=== PATIENT | female | born 2000 | race Caucasian/White ===

== ENCOUNTER 2019-12-25 15:57 | Emergency (ER) | payer OTHER ==
--- OUTSIDE RECORDS SUMMARY | 2019-12-25 16:01 | XMS ---
:2000 [facility] Providers Name Role Phone Brand, Fern Unavailable Brand, Fern Unavailable Brand, Fern Unavailable Brand, Fern Unavailable Jonathan Liu MD Unavailable Unavailable Jonathan Liu MD Unavailable Unavailable Jonathan Liu MD Unavailable Unavailable Re-disclosure Warning The records that you are about to access may contain information from federally- assisted alcohol or drug abuse programs. If such information is present, then the following federally mandated warning applies: This information has been disclosed to you from records protected by federal confidentiality rules (42 CFR part 2). The federal rules prohibit you from making any further disclosure of this information unless further disclosure is expressly permitted by the written consent of the person to whom it pertains or as otherwise permitted by 42 CFR part 2. A general authorization for the release of medical or other information is NOT sufficient for this purpose. The Federal rules restrict any use of the information to criminally investigate or prosecute any alcohol or drug abuse patient.The records that you are about to access may contain highly sensitive health information, the redisclosure of which is protected by Article 27-F of the [place] State Public Health law. If you continue you may haveaccess to information: Regarding HIV / AIDS; Provided by facilities licensed or operated by the [facility] Office of Mental Health; or Provided by the [facility] Office for People With Developmental Disabilities. If such information is present, then the following [facility] mandated warning applies: This information has been disclosed to you from confidential records which are protected by state law. State law prohibits you from making any further disclosure of this information without the specific written consent of the person to whom it pertains, or as otherwise permitted by law. Any unauthorized further disclosure in violation of state law may result in a fine or fpc sentence or both. A general authorization for the release of medical or other information is NOT sufficient authorization for further disclosure. Encounters Encounter Providers Location Date Indications Data Source(s ) Attender: Jonathan Pediatric 10/31/19 BRIANNA Liu MD [facility] ([facility] 08:41:00 Childrens AM EDT - Health 10/31/19 [facility]) 08:41:00 AM EDT Attender: Jonathan Pediatric 09/29/19 BRIANNA Liu MD [facility] ([facility] 10:55:00 Childrens AM EDT - Health 09/29/19 [facility] 20 [facility]) 10:55:00 AM EDT Attender: Jonathan Pediatric 09/06/19 BRIANNA Liu MD [facility] ([facility] 12:59:00 Childrens PM EDT - Health 09/06/19 [facility] 20 [facility]) 12:59:00 PM EDT OutpatientPREV Attender: Pediatric 03/15/19 BMI pediatric, NEXTGE N VISIT EST AGE 18-39 Fern Tiwari Of 20 5th percenti le ([facility] 03:00:00 to less than Childre ns PM EST - 85% for Health 03/15/19 ageEncntr for Physicians 20 general adult LL) 03:00:00 medical exam PM EST w/o abnormal findings BMI pediatric, 5th percentile to less th an 85% for age Encntr for general adult medical exam w/ o abnormal findings OutpatientOFFICE/OUTPATIENT Attender: Pediatric 03/10/2019 [facility] 20-32 Fern Tiwari 04:00:00 PM without LOC, (Gabrielle on [facility] - initial [facility] 03/10/2019 encounter Health 04:00:00 PM Physicians EST LL) Concussion, without LOC, initial encount er Immunizations Vaccine Date Status Description Data Source(s) New in 2011. IIV4 03/15/2019 completed Influenza 0.5 PF NEXTG EN ([place] 12:00:00 AM EST [facility]) Source: New Immunization Record Medications Medication Brand Start Product Dose Route Administrative Pharm[facility] Indications Reaction Description Data Name Date Form Instructions Instructions Source(s) Escitalopra escita .00 ORAL active escital opram NEXTGEN m 20 MG lopram 2020 {tabl 20 MG Oral ([place] Oral Tablet 20 mg 12:00: et} Tablet [place] [Lexapro] tablet 00 AM [Lexapro] He alth escitalopra EDT Physicia ns m 20 mg LLP) tablet !! Check [employer] Pricing: BIN #: [id number] Group #: [id number] Card #: [id number] PCN: Escitalopram escitalopram 09/29/2019.00 ORAL completed escitalopram NEXTGEN 20 MG Oral 20 mg tablet 12:00:00 AM {tablet} 20 MG Oral ([place] Tablet EDT Tablet Childrens [Lexapro] [Lexapro] Healt h escitalopram Physici ans 20 mg tablet LLP) !! Check [employer] Pricing: BIN #: [id number] Group #: [id number] Card #: [id number] PCN: Escitalopram Lexapro 09/06/2019 1.00 ORAL completed escitalopram NEXTGEN 20 MG Oral 20 mg 12:00:00 AM {tablet} 20 MG Oral ([place] Tablet tablet EDT Tablet Childrens [Lexapro] [Lexapro] Healt h Lexapro 20 mg Physic ians tablet LLP) !! Check [employer] Pricing: BIN #: [id number] Group #: [id number] Card #: [id number] PCN: 200 ACTUAT ProAir HFA 90 03/15/2019 active [id number] NEXTGEN Albuterol 0.09 mcg/actuation 12:00:00 AM 200 ACTUAT ([place] MG/ACTUAT aerosol inhaler EST albu terol Childrens Metered Dose 0.09 Health Inhaler MG/ACTUAT Physici ans [ProAir] ProAir Metered L LP) HFA 90 Dose mcg/actuation Inhaler aerosol inhaler [ProAir] !! Check [employer] Pricing: BIN #: [phone] Group #: [id number] Card #: [id number] PCN: 200 ACTUAT ProAir HFA 90 completed [id number] NEXTGEN Albuterol 0.09 mcg/actuation 2 00 ACTUAT ([place] MG/ACTUAT Metered aerosol inhaler Albuterol Childrens Dose Inhaler 0.09 Health [ProAir] ProAir MG/ACTUAT Physicians HFA 90 Metered Dose LLP) mcg/actuation Inhaler aerosol inhaler [ProAir] !! Check [employer] Pricing: BIN #: [phone] Group #: [id number] Card #: [id number] PCN:FW Lexapro 10 MG Lexapro completed 1.5 tabs daily NEXTGEN ([place] ORAL TABLET [facility]) !! Check [employer] Pricing: BIN #: [phone] Group #: [id number] Card #: [id number] PCN:FW Insurance Providers Payer name Policy type / Policy ID Covered Covered democrat's Policy Plan Coverage type democrat ID relationship to Rest[employer] Information restrepo COPALIS CROSSING [id number] HEALTHCARE PPO [employer] [id number] HEALTHCARE insurance [employer] [id number] HEALTHCARE insurance [employer]ING [id number] 19 [id number] HEALTHCARE Surgeries/Procedures Procedure Description Date Indications Data Source(s) ROUTINE VENIPUNCTURE 03/15/2019 NEXTGEN ([place] 12:00:00 AM EST Stephen Mueller alth - 03/15/2019 [facility]) 12:00:00 AM EST SPECIMEN HANDLING 03/15/2019 NEXTGEN ([facility] OFFICE-LAB 12:00:00 AM EST Stephen Mueller alth - 03/15/2019 [facility]) 12:00:00 AM EST PREV VISIT EST AGE 18-39 03/15/2019 NEX TGEN ([place] 12:00:00 AM EST Stephen Mueller alth - 03/15/2019 [facility]) 12:00:00 AM EST Iiv4 vacc no prsv 0.5 ml 03/15/2019 NEX TGEN ([place] im 12:00:00 AM EST Stephen Mueller alth - 03/15/2019 [facility]) 12:00:00 AM EST IMMUNIZATION ADMIN 03/15/2019 NEXTGEN ( [place] 12:00:00 AM EST Stephen Mueller alth - 03/15/2019 [facility]) 12:00:00 AM EST OFFICE/OUTPATIENT VISIT 03/10/2019 NEXT GEN ([place] EST 20-32 12:00:00 AM EST Stephen Mueller alth - 03/10/2019 [facility]) 12:00:00 AM EST Results ID Date Data Source [id number] 10/05/2019 05:24:00 PM EDT [facility] Name Value Range Interpretation Code Description Data Sarita rce(s) Supporting Document(s ) COV2 [facility] This lab was ordered by KARTHIKEYAN NORIEGA and reported by [facility]. ID Date Data Source [id number] 03/15/2019 05:14:44 PM EST NEXTGEN ([facility] [id number] [facility]) Name Value Range Interpretation Code Description Data Sarita rce(s) Supporting Document(s ) [id number] Document NEXTGEN ([place] [id number] [facility] [id number] [address] [facility]) Procedure Social History Code Duration Value Status Description Data Source(s ) Caffeine Use 09/06/2019 completed NEXTGEN ([place] Details 12:00:00 AM EDT [facility] ) Smoking 09/06/2019 Unknown if completed Unknown if ever NEXTGEN ( [place] 12:00:00 AM ever smoked smoked [facility] EDT [facility] ) Vital Signs ID Date Data Source UNK Name Value Range Interpretation Code Description Data Source(s) Oxygen saturation 98 % 98 % NEXTGEN ([place] in Arterial blood Childre ns Health by Pulse oximetry Physici ans [facility]) Body mass index 33 % 33 % NEXTGEN ( [place] (BMI) [Percentile] Childr ens Health Per age and gender Physic ians [facility]) Body mass index 20.40 kg/m2 20.40 kg/m2 NEXTGEN ([place] (BMI) [Ratio] [facility] ) Respiratory rate 20 /min 20 /min NEXTGEN ([facility] ) Body temperature 36.9 Susy 36.9 Susy NEXTGEN ([facility] ) Heart rate 90 /min 90 /min [facility] ) Diastolic blood 77 mm[Hg] 77 mm[Hg] NEXTGEN ( [place] pressure [facility] ) Systolic blood 122 mm[Hg] 122 mm[Hg] NEXTGEN ([place] pressure [facility] ) Body weight 53.070 kg 53.070 kg NEXTGEN ([facility] ) Body height 161.29 cm 161.29 cm NEXTGEN (Gabrielle on [facility] ) Oxygen saturation 99 % 99 % NEXTGEN ([place] in Arterial blood [facility] by Pulse oximetry Physici ans [facility]) Body temperature 37.1 Susy 37.1 Susy NEXTGEN ([facility] ) Heart rate 80 /min 80 /min NEXTGEN ([place] [facility] ) Diastolic blood 81 mm[Hg] 81 mm[Hg] NEXTGEN ( [place] pressure [facility] ) Systolic blood 115 mm[Hg] 115 mm[Hg] NEXTGEN ([place] pressure [facility] ) Body weight 54.431 kg 54.431 kg NEXTGEN ([place]rielle on [facility] ) Patient Treatment Plan of Care Planned Activity Planned Date Details Description Data Source (s) Escitalopram 20 MG Oral 10/31/2019 12:00:00 NEXTGEN ([place] Tablet [Lexapro] AM EDT [facility]) Escitalopram 20 MG Oral 09/29/2019 12:00:00 NEXTGEN ([place] Tablet [Lexapro] AM EDT [facility]) Escitalopram 20 MG Oral 09/06/2019 12:00:00 NEXTGEN ([place] Tablet [Lexapro] AM EDT [facility]) 200 ACTUAT Albuterol 03/15/2019 12:00:00 NEXTGEN ([place] 0.09 MG/ACTUAT Metered AM EST Child rens Health Dose Inhaler [ProAir] [facility]) Lexapro 10 MG ORAL NEXTGEN ( [place] TABLET [facility]) 200 ACTUAT Albuterol NEXTGEN ([place] 0.09 MG/ACTUAT Metered Child rens [facility] Dose Inhaler [ProAir] [facility])
--- NOTE | 2019-12-25 16:04 | TELE ---
HPI Do you have fever,cough or shortness of breath?: Yes - General Reason For Visit: COVID-19 TESTING Time Seen by Provider: 12/25/19 16:02 History Source: Patient (19-year-old woman with clear rhinorrhea and recent trip to [place] which is a COVID-19 hotspot) Exam Limitations: No Limitations - History of Present Illness 12/25/19 16:03 CONSTITUTIONAL: Absent: fever, chills, diaphoresis, generalized weakness, malaise, loss of appetite HEENT: rhinorrhea Absent: nasal congestion, throat pain, throat swelling, difficulty swallowing, mouth swelling, ear pain, eye pain, visual changes CARDIOVASCULAR: Absent: chest pain, loss of consciousness, palpitations, irregular heart rate, peripheral edema RESPIRATORY: Absent: cough, shortness of breath, dyspnea with exertion, orthopnea, wheezing, stridor, hemoptysis GASTROINTESTINAL: Absent: abdominal pain, abdominal distension, nausea, vomiting, diarrhea SKIN: Absent: rash, itching, pallor NEUROLOGIC: Absent: headache, focal weakness or paresthesias, dizziness, unsteady gait, seizure, mental status changes, bladder or bowel incontinence PSYCHIATRIC: Absent: anxiety, depression, suicidal or homicidal ideation, hallucinations. GENERAL: Well developed, well nourished. Awake and alert. No acute distress. HEENT: Normocephalic, atraumatic. PERRLA, EOMI. NECK: Supple. Full ROM. PULMONARY: No evidence of respiratory distress. EXTREMITIES: No cyanosis. SKIN: Warm and dry. Normal capillary refill. No rashes. No jaundice. NEUROLOGICAL: Alert, awake, appropriate. PSYCHIATRIC: Cooperative. Good eye contact. Appropriate mood and affect. - Medical Decision Making 12/25/19 16:04 A/P: 19-year-old woman with encounter for COVID-19 testing Clear rhinorrhea otherwise normal exam COVID-19 testing Counseled about COVID-19 infection and social distancing Discharge Portions of this note have been documented using voice recognition software. As a result, errors may occur in the gas pipe layer process. Effort has been made to correct all grammatical and gas pipe layer error, but some may have been missed which may produce sporadic inaccurate gas pipe layer or nonsensical phrases. Discharge Diagnosis at time of Disposition: Counseled about COVID-19 virus infection - Referrals - Patient Instructions Additional Discharge Instructions: You were tested for COVID today. Please isolate yourself until your test results come back. Guidance has been provided in your discharge papers You should receive a call within 24 to 48 hours from our department with your results. Thank you for using our telehealth service today! - Discharge Disposition: HOME Condition at time of Disposition: Stable
== END 2019-12-25 16:04 | disposition home or self-care (01) ==
LOC: JVIRT 15:57
DX: Z03.818 Encounter for observation for suspected exposure to other biological agents ruled out (principal)
CPT/HCPCS: C9803; Q3014-GT; U0003

== ENCOUNTER 2020-01-19 13:49 | Emergency (ER) | payer OTHER | END 2020-01-19 14:26 | disposition home or self-care (01) | LOC: JVIRT 13:49 | DX: Z03.818 Encounter for observation for suspected exposure to other biological agents ruled out (principal) | CPT/HCPCS: C9803; Q3014-GT; U0003 ==